=== PATIENT | male | born 1965 | race Caucasian/White ===

== ENCOUNTER 2017-03-19 15:47 | Emergency (ER) | payer MEDICAID ==
[~2017-03-19] VITALS: Ht 182.9 cm; Wt 112.0 kg
[2017-03-19 15:47] VITALS: BP_SYST 96
[2017-03-19] MEDS ORDERED: MORPHINE SULFATE 10 MG/ML VIAL IM ONE (16:30)
[2017-03-19] MEDS ORDERED: DIPHENHYDRAMINE INJ 50 MG/ML VIAL IM ONE (16:30)
[2017-03-19] MEDS ORDERED: HYDROmorphone 1 MG INJ. 1 MG/ML AMPUL IVP ONE (16:45)
[2017-03-19] MEDS ORDERED: ONDANSETRON HCL 4 MG/2 ML VIAL IVP ONE (16:45)
[2017-03-19] MEDS ORDERED: HYDROmorphone 2 MG/ML VIAL IVP ONE (18:00)
[2017-03-19 19:35] VITALS: BP_SYST 108
== END 2017-03-19 19:35 | disposition home or self-care (01) ==
LOC: SED 15:47
DX: S42.291A Other displaced fracture of upper end of right humerus, initial encounter for closed fracture (principal); Y04.2XXA Assault by strike against or bumped into by another person, initial encounter; Y93.89 Activity, other specified; Y92.89 Other specified places as the place of occurrence of the external cause; Y99.8 Other external cause status
CPT/HCPCS: 29105; 73030; 96374; 96375; 96376; 99284; J1170 ×2; J2405